=== PATIENT | female | born 1945 | race Caucasian/White ===

== ENCOUNTER → 2024-06-28 14:39 | Outpatient (REF) | payer OTHER, SELFPAY | LOC: MRI 3T 14:39 | PROVIDERS: ATTENDING PHYSICIAN Physician Assistant | DX: R41.89 Other symptoms and signs involving cognitive functions and awareness (principal); R25.1 Tremor, unspecified; R26.9 Unspecified abnormalities of gait and mobility; I10 Essential (primary) hypertension | CPT/HCPCS: 70553; A9575 ==

== ENCOUNTER → 2024-09-29 10:39 | Outpatient (REF) | payer OTHER, SELFPAY | LOC: RAD 10:39 | PROVIDERS: ATTENDING PHYSICIAN Specialist; FAMILY PHYSICIAN Student in an Organized Health Care Education/Training Program | DX: G30.1 Alzheimer's disease with late onset (principal) | CPT/HCPCS: 70450 ==

== ENCOUNTER → 2024-10-26 13:21 | Outpatient (REF) | payer OTHER, SELFPAY | LOC: RAD 13:21 | PROVIDERS: ATTENDING PHYSICIAN Urology; FAMILY PHYSICIAN Student in an Organized Health Care Education/Training Program | DX: N39.0 Urinary tract infection, site not specified (principal); N39.41 Urge incontinence | CPT/HCPCS: 76770; 76830; 76856 ==

== ENCOUNTER → 2025-01-10 14:13 | Outpatient (REF) | payer OTHER, SELFPAY | LOC: RAD 14:13 | PROVIDERS: ATTENDING PHYSICIAN Urology; FAMILY PHYSICIAN Student in an Organized Health Care Education/Training Program | DX: R93.89 Abnormal findings on diagnostic imaging of other specified body structures (principal); N83.299 Other ovarian cyst, unspecified side | CPT/HCPCS: 76830; 76856 ==

== ENCOUNTER → 2025-03-12 13:20 | Outpatient (REF) | payer OTHER, SELFPAY | LOC: RAD 13:20 | PROVIDERS: ATTENDING PHYSICIAN Student in an Organized Health Care Education/Training Program | DX: R22.1 Localized swelling, mass and lump, neck (principal) | CPT/HCPCS: 76536 ==